=== PATIENT | female | born 1975 ===

== ENCOUNTER 2021-05-20 12:57 | Emergency (ER) | payer OTHER ==
[~2021-05-20] VITALS: Ht 167.6 cm; Wt 81.7 kg
[2021-05-20] MEDS ORDERED: ONDA4ODT MM (13:16)
[2021-05-20] MEDS ORDERED: BENZ100A PO (13:16)
== END 2021-05-20 13:21 | disposition home or self-care (01) ==
LOC: ER 12:57
DX: U07.1 COVID-19 (principal)
CPT/HCPCS: 99284

== ENCOUNTER → 2024-11-04 | Outpatient (CLI) | payer OTHER ==
[~2024-11-04] MED LIST: BENZ100A PO; ONDA4ODT MM
== END ==
LOC: LAB SHORT 18:40 → LAB 18:40
DX: R30.0 Dysuria (principal)
CPT/HCPCS: 87086